=== PATIENT | male | born 1990 | race Caucasian/White ===

== ENCOUNTER 2021-04-21 02:35 | Emergency (ER) | payer BC ==
[~2021-04-21] VITALS: Ht 190.5 cm; Wt 108.9 kg
[2021-04-21] MEDS ORDERED: DEXAMETHASONE 4 MG TAB PO STA (02:50)
[2021-04-21] MEDS ORDERED: CLINDAMYCIN HC150 MG PO (02:52)
[2021-04-21 03:14] VITALS: BP 124/76
[2021-04-21] MEDS ORDERED: DEXAMETHASONE SOD PHOS 10 MG/1 ML VIAL ONE (03:18)
== END 2021-04-21 03:16 | disposition home or self-care (01) ==
LOC: ER 02:54
DX: J02.0 Streptococcal pharyngitis (principal); F90.9 Attention-deficit hyperactivity disorder, unspecified type
CPT/HCPCS: 99283; J1100